=== PATIENT | female | born 1970 | race Caucasian/White ===

== ENCOUNTER → 2020-01-16 12:01 | Outpatient (BNVA) | payer BC, SELFPAY | PROVIDERS: Family Provider Nurse Practitioner; PCP Nurse Practitioner; Visit Provider Family Medicine | DX: L98.9 Disorder of the skin and subcutaneous tissue, unspecified (principal) | CPT/HCPCS: 88305 ==

== ENCOUNTER → 2020-02-10 17:10 | Outpatient (BNVA) | payer BC, SELFPAY | PROVIDERS: Family Provider Nurse Practitioner; PCP Nurse Practitioner; Visit Provider Nurse Practitioner Women's Health | DX: L91.8 Other hypertrophic disorders of the skin (principal) | CPT/HCPCS: 88304; 88305 ==

== ENCOUNTER → 2020-02-13 10:22 | Outpatient (BNVA) | payer BC, SELFPAY | PROVIDERS: Family Provider Nurse Practitioner; PCP Nurse Practitioner; Visit Provider Nurse Practitioner Women's Health | DX: R10.2 Pelvic and perineal pain (principal); N93.9 Abnormal uterine and vaginal bleeding, unspecified; E66.9 Obesity, unspecified | CPT/HCPCS: 76830 ==

== ENCOUNTER → 2020-02-21 11:52 | Outpatient (BNVA) | payer BC, SELFPAY | PROVIDERS: Family Provider Nurse Practitioner; PCP Nurse Practitioner; Visit Provider Nurse Practitioner Family | DX: M10.9 Gout, unspecified (principal); M25.572 Pain in left ankle and joints of left foot; M79.672 Pain in left foot; R73.09 Other abnormal glucose; M25.472 Effusion, left ankle | CPT/HCPCS: 73610; 73630 ==

== ENCOUNTER → 2020-03-19 14:31 | Outpatient (BNVA) | payer BC, SELFPAY | PROVIDERS: Family Provider Nurse Practitioner; PCP Nurse Practitioner; Visit Provider Obstetrics & Gynecology | DX: N91.1 Secondary amenorrhea (principal); G62.9 Polyneuropathy, unspecified | CPT/HCPCS: 83001; 84146; 84443; 84702 ==

== ENCOUNTER → 2020-04-06 13:02 | Outpatient (BNVA) | payer BC, SELFPAY | PROVIDERS: Family Provider Nurse Practitioner; PCP Nurse Practitioner; Referring Provider Obstetrics & Gynecology; Visit Provider Internal Medicine | DX: E11.42 Type 2 diabetes mellitus with diabetic polyneuropathy (principal); E55.9 Vitamin D deficiency, unspecified; E66.01 Morbid (severe) obesity due to excess calories; Z68.44 Body mass index [BMI] 60.0-69.9, adult; I10 Essential (primary) hypertension; R53.83 Other fatigue; R94.6 Abnormal results of thyroid function studies; Z87.39 Personal history of other diseases of the musculoskeletal system and connective tissue | CPT/HCPCS: 99204 ==

== ENCOUNTER 2020-04-12 13:09 | Outpatient (CLI) | payer BC, SELFPAY ==
--- NOTE | 2020-04-12 13:30 | MM_ITS ---
WS: [id number] BILATERAL DIGITAL DIAGNOSTIC MAMMOGRAM MAMMOGRAPHY WITH CAD CLINICAL INFORMATION: Right Axillary Breast Lump COMPARISON: March 03, 2017 TECHNIQUE: Bilateral CC, MLO, and ML views. FINDINGS: Scattered fibroglandular densities bilaterally. Palpable marker upper outer right breast. No underlyi ng mammographic abnormalities. Ultrasound is pending. Left breast is unremarkable and unchanged since 2017. ULTRASOUND BREAST LEFT TECHNIQUE: Ultrasound left breast focused area of concern. CLINICAL INFORMATION: Right Axillary Breast Lump COMPARISON: None. FINDINGS: Ultrasound right breast at the 2:00 position 10 cm from the nipple. In the area of palpable concern i s echogenic well-circumscribed lesion most consistent with lipoma or fibroadenolipoma. This has a chelsey ign appearance. This measures 2.8 x 1.5 x 1.8 cm. No other suspicious abnormalities. MM/[place] [id number] IMPRESSION: BI-RADS: 2-Benign FOLLOW UP: 1 Year Follow-up Recommend return to annual screening mammography. .
--- NOTE | 2020-04-12 14:15 | US_ITS ---
WS: [id number] BILATERAL DIGITAL DIAGNOSTIC MAMMOGRAM MAMMOGRAPHY WITH CAD CLINICAL INFORMATION: Right Axillary Breast Lump COMPARISON: March 03, 2017 TECHNIQUE: Bilateral CC, MLO, and ML views. FINDINGS: Scattered fibroglandular densities bilaterally. Palpable marker upper outer right breast. No underlyi ng mammographic abnormalities. Ultrasound is pending. Left breast is unremarkable and unchanged since 2017. ULTRASOUND BREAST LEFT TECHNIQUE: Ultrasound left breast focused area of concern. CLINICAL INFORMATION: Right Axillary Breast Lump COMPARISON: None. FINDINGS: Ultrasound right breast at the 2:00 position 10 cm from the nipple. In the area of palpable concern i s echogenic well-circumscribed lesion most consistent with lipoma or fibroadenolipoma. This has a chelsey ign appearance. This measures 2.8 x 1.5 x 1.8 cm. No other suspicious abnormalities. US/US breast RT limited* [id number] IMPRESSION: BI-RADS: 2-Benign FOLLOW UP: 1 Year Follow-up Recommend return to annual screening mammography. .
== END 2020-04-12 13:10 | disposition home or self-care (01) ==
LOC: RADSHAW 13:14
PROVIDERS: PCP Family Medicine; Visit Provider Obstetrics & Gynecology
DX: N63.31 Unspecified lump in axillary tail of the right breast (principal)
CPT/HCPCS: 76642; 77066

== ENCOUNTER → 2020-04-26 11:31 | Outpatient (BNVA) | payer BC, SELFPAY | PROVIDERS: PCP Family Medicine; Visit Provider Obstetrics & Gynecology | DX: Z20.828 Contact with and (suspected) exposure to other viral communicable diseases (principal); G89.29 Other chronic pain | CPT/HCPCS: 87635 ==

== ENCOUNTER → 2020-05-16 11:49 | Outpatient (BNVA) | payer BC, SELFPAY | PROVIDERS: PCP Family Medicine; Visit Provider Obstetrics & Gynecology | DX: Z11.59 Encounter for screening for other viral diseases (principal) | CPT/HCPCS: 87635 ==

== ENCOUNTER 2020-05-17 15:56 | Outpatient (CLI) | payer BC, SELFPAY | END 2020-05-17 15:57 | disposition home or self-care (01) | LOC: SPT 15:58 | PROVIDERS: PCP Family Medicine; Visit Provider Podiatrist Foot & Ankle Surgery | DX: Z47.89 Encounter for other orthopedic aftercare (principal); M72.2 Plantar fascial fibromatosis | CPT/HCPCS: 97760; L4397 ==

== ENCOUNTER 2020-05-23 10:40 | Observation (INO) | payer BC, SELFPAY ==
[2020-05-21 09:26] VITALS: BMI 53.4
--- NOTE | 2020-05-21 09:41 | P.ANESASSM_ITS ---
Pre-Anesthetic Assessment Pre-Anesthetic Assessment: Height/Weight: Height 1.65 m Weight 145.603 kg Preop Diagnosis: abdominal pain Proposed Procedure: Operation Date: 05/23/20 07:55 Proposed Procedures p Laparoscopy Diagnostic 47207 R10.2(Not Applicable) - Toy Thornton MD Familial anesthetic complications: None Social: Social History: No alcohol and No tobacco Exam: Pre-Anes Outpt Exam: alert, oriented x 3, clear to auscultation bilaterally and regular rate & rhythm Airway: Cervical ROM: WNL MP: 3 Dentition: Chipped and Full Pulmonary: Pulmonary: Sleep apnea (cpap) CV/HEM: CV/HEM: HTN GI: GI: GERD Metabolic: Metabolic: DM and Morbid obesity Anesthetic Plan: ASA status: 2 Anesthesia: General Risk of > 500 ml blood loss (7ml/kg in children): No PFSH Anesthesia PFSH: Medical History Benign mole Bone spur of left ankle Chronic pelvic pain in female Hypothyroidism OAB (overactive bladder) Type 2 diabetes mellitus Surgical History H/O umbilical hernia repair (~1998) performed at same time of gastric sleeve S/P section (~2011) Performed at [facility] in [place], [place] S/P gastric bypass (~1998) Gastric sleeve--- performed in [place] S/P tonsillectomy Family History Mother Hypertension Diabetes CAD (coronary artery disease) Hyperlipidemia Grandfather Diabetes Stroke MATERNAL Grandmother Diabetes Family/Other Diabetes Denies family history of Colon cancer Ovarian cancer Breast cancer Uterine cancer Social History Smoking and tobacco status: never smoked Alcohol intake: former Former alcohol use details: as a teenager Female Reproductive History: Date of last menstrual period: 04/02/20 Data Anesthesia Cardiac Studies: Holter Monitor 01/10/20
[2020-05-23] VITALS (19 sets, daily range): BP systolic 108–162; BP diastolic 60–72; PULSE 47–95; RESP 14–21; TEMP 36.2–36.8; O2SAT 92–100
[2020-05-23 06:15] LABS: OR HCG Qualitative Urine Negative (Negative)
[2020-05-23 06:16] LABS: Glucose Point of Care 109 mg/dL (70-110)
[2020-05-23] MEDS: sodium chloride 0.9% 500 ML IV (06:21)
[2020-05-23] MEDS: scopolamine 1.5 Patch 1 PATCH TRANSDERMA (06:23)
--- NOTE | 2020-05-23 06:43 | P.ANESUD_ITS ---
Pre-Anesthetic Update Pre-Anesthetic Assessment: Date of Surgery/Procedure: 05/23/20 Preop Radha gnosis: Chronic pelvic pain Proposed Procedure: Operation Date: 05/23/20 07:00 Proposed Procedures p Laparoscopy Diagnostic 12894 R10.2(Not Applicable) - Toy Thornton MD Any changes to Pre-Anesthetic Assessment?: No Last Intake: Intake Last Liquid Date 05/22/20 Last Liquid Time 21:30 Last Solid Date 05/22/20 Last Solid Time 19:00 Labs Last 48hrs: Laboratory Results - last 48 hr 05/23/20 05/23/20 05:55 06:13 POC Glucose 109 Urine HCG, Qual Negative Vitals: Oxygen Delivery Me thod 05/23/20 06:09 Exam: Pre-Anes Outpt Exam: alert, oriented x 3, clear to auscultation bilater ally and regular rate & rhythm Other Pertinent Information: Other Pertinent Information: R eye is red and irritated since thursday- states its getting better Cardiac Studies: Holter Monitor 01/10/20
--- NOTE | 2020-05-23 07:08 | W.PM.OPSUD ---
Surgery/Procedure H&P Update DATE OF PROCEDURE: May 23, 2020 DATE H&P PERFORMED: 04/24/20 H&P UPDATE INFORMATION: I have reviewed H&P completed within last 30 days, I have examined patient prior to procedure and No changes to prior documentation PREOP DIAGNOSIS: Chronic pelvic pain PLANNED PROCEDURE: Operation Date: 05/23/20 07:00 Proposed Procedures p Laparoscopy Diagnostic 01212 R10.2(Not Applicable) - Toy Thornton MD
[2020-05-23] MEDS: sodium chloride 0.9% 1,000 ML 30 ML IV (07:16)
[2020-05-23 08:23] LABS: Basophils # 0.1 10^3/uL (0.0-0.1); Basophils % 0.6 %; Eosinophils # 0.1 10^3/uL (0.0-0.8); Eosinophils % 1.5 %; Hematocrit 42.6 % (37.0-47.0); Lymphocytes # 3.3 10^3/uL (0.8-4.8); Lymphocytes % 34.7 %; Mean Corpuscular HGB Conc 30.5 g/dL (30.0-36.0); Mean Corpuscular Hemoglobin 28.1 pg (28.0-34.0); Mean Platelet Volume 11.2 fL (7.4-10.4); Monocytes # 0.6 10^3/uL (0.2-0.9); Monocytes % 5.7 %; Neutrophils # 5.49 10^3/uL (1.8-7.7); Nucleated Red Blood Cells % 0 %; Platelet Count 219 10^3/cmm (130-400); Red Blood Count 4.63 10^6/uL (4.1-5.3); Red Cell Distribution Width 14.3 % (12.1-15.1); White Blood Count 9.6 10^3/uL (4.0-10.0)
[2020-05-23 08:33] LABS: Alanine Aminotransferase 16 U/L (0-33); Albumin Level 4.1 g/dL (3.5-5.2); Alkaline Phosphatase 69 IU/L (35-105); Anion Gap 15.7 (5-19); Aspartate Amino Transferase 15 U/L (0-32); Blood Urea Nitrogen 14 mg/dL (6-20); Calcium 9.2 mg/dL (8.5-10.5); Carbon Dioxide 27 mmol/L (22-29); Chloride 101 mmol/L (98-107); Globulin 2.7 g/dL (1.3-4.6); Glomerular Filtration Rate 106.7 mL/min (90-130); Glucose 115 mg/dL (65-115); Osmolality Calculated 291 mOsm/kg (285-295); Potassium 3.7 mmol/L (3.5-5.1); Sodium 140 mmol/L (136-145); Total Bilirubin 0.3 mg/dL (0.15-1.2); Total Protein 6.8 g/dL (6.6-8.7)
--- NOTE | 2020-05-23 08:54 | P.OP_ITS ---
Operative Report Date of procedure: May 23, 2020 Pre-op Diagnosis: Chronic pelvic pain Post-op diagnosis: same Post-op Findings: dense adhesions in pelvis, and anterior abdominal wall Procedure Done: Diagnostic laparoscopy Pathology: none sent Surgeon: Toy Thornton MD Anesthesia: General Estimated blood loss (mL): 5 IV fluids (mL): 700 Urine output (mL): 50 Findings: Dense adhesions Condition: stable Disposition: PACU Procedure: DESCRIPTION OF PROCEDURE: After informed consent, the patient was taken to the operating room where general anesthesia was administered. The patient was examined under anesthesia and found to have a normal uterus with normal adnexa. She was placed in the dorsal lithotomy position and prepped and draped in sterile fashion. Pre- Procedure Time-Out verifying the correct patient identity, correct procedure verified with consent, correct site and side, correct patient position, availability of correct implants and any special equipment or requirements was performed and acknowledge by the OR team. A weighted speculum was placed in the vagina, and the anterior lip of cervix was grasped with the single toothed tenaculum. A uterine manipulator was advanced into the endocervical. Tenaculum was removed after uterine manipulator was secured. The speculum was removed from the vagina. An intraumbilical incision was made with a scalpel. While tenting up on the abdomen, a Verres needle with sleeve was admitted into the intra-abdominal cav ity. A saline drop test was performed and noted to be within normal limits. Pneumoperitoneum was attained with 4 liters of carbon dioxide. The Verres needle was removed. A 5 mm trocar and sleeve were admitted into the abdomen and laparoscopic confirmation of location was achieved, A second incision was made 3 cm above the symphysis pubis, and a 5 mm trocar and sleeve were admitted into the abdomen under direct, laparoscopic visualization without complication. A survey revealed the abdominal anatomy distorted due to multiple omental adhesions and pelvic survey shows the uterus with dense adhesions to the anterior abdominal wall. The left and right adnexa difficult to assess due to adhesions. A 5 mm blunt probe was advanced through the second trocar sleeve, and light manipulation of ovaries and uterus to assess the posterior aspects was performed. Carbon dioxide was allowed to escape from the abdomen. The instruments were removed, and skin cover with a bandage. The instruments were removed from the vagina, and excellent hemostasis was noted. The patient tolerated the procedure well, and sponge, lap and needle count were correct times two. The patient taken to the recovery room in good condition.
[2020-05-23] MEDS: ondansetron 2 mg/ML SDV 2 mL 4 MG IVP (09:02)
[2020-05-23 10:27] LABS: Add Urine Microscopic? NO; Bilirubin Urine Neg (Negative); Blood Urine Neg (Negative); Glucose Urine UA Norm (Normal); Ketones Urine Negative (Negative); Leukocyte Esterase Urine Negative (Negative); Nitrate Urine Negative (Negative); Protein Urine Neg (Negative); Urine Appearance Clear (CLEAR); Urine Color Straw (Yellow); Urobilinogen Urine Norm (Negative)
--- NOTE | 2020-05-23 10:40 | PM.PACU ---
PACU note Post-Anesthesia Exam: awake and vital signs stable Disposition: admitted
[2020-05-23] MEDS: docusate sodium 100 mg Capsule PO (11:32)
[2020-05-23] MEDS: allopurinol 100 mg Tablet PO (11:32)
[2020-05-23] MEDS: gabapentin 300 mg Capsule PO ×2 (11:32→17:42)
[2020-05-23] MEDS: dextrose 5%-lactated ringers 1,000 ML 125 ML IV ×2 (11:32→21:19)
[2020-05-23] MEDS: cetirizine 10 mg Tablet PO (11:32)
[2020-05-23] MEDS: ketorolac 30 mg/mL INJ IVP ×3 (11:35→22:44)
[2020-05-23] MEDS: pantoprazole DR 40 mg Tablet PO (11:35)
[2020-05-23] MEDS: metformin XR 500 MG Tablet PO (13:58)
--- NOTE | 2020-05-23 16:02 | PC.NURSE ---
Patient requests to be given her FLU shot tomorrow before she is discharged.
--- NOTE | 2020-05-23 16:31 | PC.NURSE ---
Patient's arrived with patient's medications already sorted out in her pill box. Explained to patient that I needed roseann to bring in her pill bottles with the medications in them. Patient states, Why I know what I take and when Explained to the patient that we needed the bottles for the pharmacy to verify what the medication is so we can say that she received it. Patient states, I know what they are and I need my medications so I am going to take them like I take them at home. I am not confused or anything so I am going to take them. I don't need to be charged for medications when I have my own here. Patient took her Propranolol 60 mg, Linzess 145mg, and her Contrave 2 pills. Patient home medications were removed from bedside and placed in her room bin which gets locked. Explained to patient that she needs to get up to a chair for dinner and to walk around tonight before bed. Patient states, I wanted to go home. I didn't even want to be here so I will get to the chair and walk when I am ready. Patient at bedside during conversation.
[2020-05-23] MEDS: [UNRECOGNIZED DRUG - OTHER] 2 EACH PO (17:42)
[2020-05-24] VITALS: BP 106/63; PULSE 65; RESP 16; TEMP 36.6; O2SAT 96
[2020-05-24 04:00] VITALS: BP 110/67; PULSE 50; RESP 20; TEMP 36.3; O2SAT 96
[2020-05-24] MEDS: dextrose 5%-lactated ringers 1,000 ML 125 ML IV (04:19)
[2020-05-24] MEDS: ketorolac 30 mg/mL INJ IVP (04:44)
[2020-05-24 06:20] LABS: Hematocrit 35.7 % (37.0-47.0); Hemoglobin 10.9 g/dL (11.5-15.3); Mean Corpuscular HGB Conc 30.5 g/dL (30.0-36.0); Mean Corpuscular Hemoglobin 28.7 pg (28.0-34.0); Mean Corpuscular Volume 93.9 fL (81-99); Mean Platelet Volume 10.4 fL (7.4-10.4); Platelet Count 173 10^3/cmm (130-400); Red Cell Distribution Width 14.6 % (12.1-15.1); White Blood Count 8.5 10^3/uL (4.0-10.0)
[2020-05-24 07:30] VITALS: BP 105/69; PULSE 51; RESP 15; TEMP 36.4; O2SAT 95
[2020-05-24] MEDS: hydroCHLOROthiazide 25 mg Tablet PO (08:11)
[2020-05-24] MEDS: metformin XR 500 MG Tablet PO (08:11)
[2020-05-24] MEDS: pantoprazole DR 40 mg Tablet PO (08:12)
[2020-05-24] MEDS: docusate sodium 100 mg Capsule PO (08:12)
[2020-05-24] MEDS: allopurinol 100 mg Tablet PO (08:12)
[2020-05-24] MEDS: ibuprofen 800 mg tablet PO (08:12)
[2020-05-24] MEDS: gabapentin 300 mg Capsule PO (08:12)
[2020-05-24] MEDS: lisinopril 20 mg Tablet PO (08:13)
[2020-05-24] MEDS: cetirizine 10 mg Tablet PO (08:13)
[2020-05-24] MEDS: NON-FORMULARY MEDICATION (Linaclotide [Linzess] 145 MCG) 145 EACH PO (08:23)
[2020-05-24] MEDS: [UNRECOGNIZED DRUG - OTHER] 2 EACH PO (08:23)
--- NOTE | 2020-05-24 08:49 | PM.OBGYDC ---
Discharge Providers SPEECH AND LANGUAGE ASSISTANT Date of Admission: 05/23/20 10:40 Date of Discharge: 05/24/20 Attending Provider at Admission: Toy Thornton MD Attending Provider at Discharge: Toy Thornton MD Primary Care Provider: Asha Adair MD Reason for Visit Reason for Visit: chronic pelvic pain Hospital Course Hospital Course: 41-year-old female admitted for a diagnostic laparoscopy due to chronic pelvic pain. The procedure was performed without complications. Overnight observation was uneventful. She is tolerating diet well. Ambulating without difficulty. Pain well controlled. Physical Exam Narrative: EXAM NARRATIVE: GA: Alert and oriented ?3. HEENT: WNL. Heart: Regular rate and rhythm. Lungs: Clear to auscultation bilaterally. Abdomen: Bowel sounds present, nontender, minimal tenderness, incision clean and dry, no redness, pain or edema. STEWARD/STEWARDESS ROOM: No bleeding. Extremities: No edema, no cyanosis, no calves pain. Urinary Catheter Management^: Mark: Cath Placed During This Visit: yes, but has since been removed by the nurse Reason for Continuing Indwelling Catheter: Perioperative Use in Selected Surgeries Urinary Catheter Date of Insertion: 05/23/20 Urinary Catheter Time of Insertion: 07:48 Date Urinary Catheter Removed: 05/23/20 Time Urinary Catheter Discontinued: 21:00 Discharge Data Data Completed and Pending: Pending at discharge Category Date Time Status ES surgery / GI i mages Routine Exams 05/23/20 06:31 Taken Labs from last 24 hours 05/24/20 05/23/20 05/23/20 06:05 06:10 05:55 WBC 8.5 RBC 3.80 L Hgb 10.9 L Hct 35.7 L MCV 93.9 MCH 28.7 MCHC 30.5 RDW 14.6 Plt Count 173 MPV 10.4 Urine Color Straw Urine Appearance Clear Urine pH 5.0 Ur Specific Gravit y 1.020 Urine Protein Neg Urine Glucose (UA) Norm Urine Ketones Negative Urine Blood Neg Urine Nitrate Negative Urine Bilirubin Neg Urine Urobilinogen Norm Ur Leukocyte Francoise ase Negative Blood Type A Negative Rho(D) Type Negative Antibody Screen Negative Vitals: Last Vital Signs Temp 97.5 F L 05/24/20 07:30 Pulse 51 L 05/24/20 07:30 Resp 15 05/24/20 07:30 BP 105/69 05/24/20 07:30 Pulse Ox 95 05/24/20 07:30 Discharge Plan Discharge Patient Disposition: Home Condition: Stable Prescriptions: New ibuprofen 800 mg tablet 800 mg PO TID PRN (Reason: pain) Qty: 60 RF: 0 Continued cetirizine [Zyrtec] 10 mg tablet 10 mg PO QDAY RF: 0 gabapentin 300 mg capsule 300 mg PO BID RF: 0 (DME) Night splint See Rx Instructions .Route .MEDSUPPLY Qty: 1 RF: 0 allopurinol 100 mg tablet 100 mg PO DAILY Qty: 30 RF: 2 (DME) Diabetic Shoes See Rx Instructions .ROUTE .MEDSUPPLY Qty: 1 RF: 0 Linzess 145 mcg capsule 145 mcg PO DAILY Qty: 30 RF: 2 lisinopril-hydrochlorothiazide 20-25 mg tablet 1 tab PO QDAY 30 Days Qty: 30 RF: 5 metformin 500 mg tablet extended release 24 hr 500 mg PO DAILY 30 Days Qty: 30 RF: 2 Prilosec OTC 20 mg tablet,delayed release (DR/EC) 20 mg PO QDAY 30 Days Qty: 30 RF: 5 propranolol 60 mg capsule,extended release 24 hr 60 mg PO QDAY 30 Days Qty: 30 RF: 5 naltrexone-bupropion [Contrave] 8-90 mg tablet extended release See Rx Instructions .ROUTE .COMPLEX Qty: 120 RF: 0 Discharge Orders: Discharge Order (Routine); Ordered 05/24/20 Ordered By: Toy Thornton Referrals: Toy Thornton MD [Physician] - 2 weeks Discharge Diet: Regular Discharge Activity: Increase activity as tolerated Patient Instructions: Laparoscopy, Exploratory Laparoscopy (DC) Activity Restrictions/Additional Instructions: Pelvic rest for 6 weeks: No tampons, no vaginal douches, no sex. Return to the emergency room if any fever (>100.4), increased bleeding or pain Discharge Attestations SPEECH AND LANGUAGE ASSISTANT Time Spent in Discharge Care*: greater than 30 min Coding Level of Care Code Acute Die Attaching Machine Tender for Nisreen White
--- NOTE | 2020-05-24 10:06 | PC.CHAP ---
Pastoral Care Encounter/Spiritual Assessment Type of Contact [] Declined manufacturing automation engineer visit [] Patient/Family/Request visit [] Outpatient visit [] Follow-up visit [] Physician referral [] Code/Alert [x] Routine visit [] Staff referral [] Actively dying [] Patient sleeping [] Family support [] [] Out of room [] Palliative care [] [x] Receiving care in room [] Pre-surgical visit [] Trauma [] Long length of stay [] ICU visit [] Other: Relational/Emotional Strength [x] Patient feels connected with others/family/visitors/staff [] Distress [] Loneliness/isolation [] Abandonment Spirituality of Patient [x] Person of Sandra [] Attends Anglican of their Sandra [x] Believes in Prayer [] Reads Bible or Mandaeism materials [] There are Spiritual issues to be addressed Bird Cage Assembler Interventions [x] Prayer [x] Active listening [x] Non-anxious presence [x] Spiritual/emotional support [] Crisis/trauma care [x] Spiritual counseling [] Bereavement support [] Provided bereavement packet [] Provided Bible/devotional materials [] Provided toy/stuffed animal, coloring book to patient or family member [] Provided Communion [] Anointing/Chambers [] Salvation [x] Completed spiritual assessment [] Other: Impact on Illness or Injury [] Angry [] Fearful [] Anxious [] Often cries [] Exhaustion [] Unable to work [] Unable to attend anglican [] Unable to walk/stand [] Unable to read [] Unable to drive [] Unable to eat/drink [] Unable to sleep [] Unable to be with family [] Patient intubated [] Other: Summary Porceduer on pelvic will need some time for recovery and threopy going home has a very good attitude Time spent with patient 10 m ins
[2020-05-24 10:46] VITALS: BP 105/69; PULSE 51; RESP 15; TEMP 36.4; O2SAT 95
== END 2020-05-24 10:00 | disposition home or self-care (01) ==
LOC: MEDSURG 10:41
PROVIDERS: Admitting Provider Obstetrics & Gynecology; PCP Family Medicine; Visit Provider Obstetrics & Gynecology
PROC: (CPT 49320; principal; 2020-05-23 07:00)
DX: R10.2 Pelvic and perineal pain (principal); N73.6 Female pelvic peritoneal adhesions (postinfective); G47.30 Sleep apnea, unspecified; I10 Essential (primary) hypertension; K21.9 Gastro-esophageal reflux disease without esophagitis; E11.9 Type 2 diabetes mellitus without complications; E66.01 Morbid (severe) obesity due to excess calories; Z68.43 Body mass index [BMI] 50.0-59.9, adult; E03.9 Hypothyroidism, unspecified
CPT/HCPCS: 49320; 12345; 36415; 36416; 80053; 81003; 82962; 84703; 85025; 85027; 86850; 86900; 96360; 96361; 96365; 96375; G0378; J0330; J0690; J1885; J2405; J2704; J2710; J2765; J3490; J7030; J7040

== ENCOUNTER → 2020-08-01 14:00 | Outpatient (BNVA) | payer BC, SELFPAY | PROVIDERS: PCP Family Medicine; Visit Provider Internal Medicine | DX: E11.9 Type 2 diabetes mellitus without complications (principal); E55.9 Vitamin D deficiency, unspecified; E79.0 Hyperuricemia without signs of inflammatory arthritis and tophaceous disease; G62.9 Polyneuropathy, unspecified; I10 Essential (primary) hypertension; E66.01 Morbid (severe) obesity due to excess calories; Z68.44 Body mass index [BMI] 60.0-69.9, adult; R00.1 Bradycardia, unspecified; Z87.39 Personal history of other diseases of the musculoskeletal system and connective tissue; Z98.84 Bariatric surgery status | CPT/HCPCS: 99214 ==

== ENCOUNTER 2020-08-08 09:07 | Day surgery (SDC) | payer BC, SELFPAY ==
[2020-08-06 13:23] VITALS: BMI 52.2
[2020-08-08 09:39] LABS: OR HCG Qualitative Urine Negative (Negative)
[2020-08-08 09:45] VITALS: BP 139/76; PULSE 57; RESP 18; TEMP 36.5; O2SAT 98
--- NOTE | 2020-08-08 09:46 | W.PM.OPSUD ---
Surgery/Procedure H&P Update DATE OF PROCEDURE: August 08, 2020 DATE H&P PERFORMED: 07/19/21 H&P UPDATE INFORMATION: I have reviewed H&P completed within last 30 days, I have examined patient prior to procedure and No changes to prior documentation PREOP DIAGNOSIS: Bleeding per rectum PRIMARY INDICATION FOR PROCEDURE: The same PLANNED PROCEDURE: Operation Date: 08/08/20 10:15 Proposed Procedures p EGD/Colon 96406 K21.9(Not Applicable) - Jan Garcia MD s Colonoscopy 12880 K62.5(Not Applicable) - Jan Garcia MD
[2020-08-08] MEDS: sodium chloride 0.9% 1,000 ML 30 ML IV (10:00)
[2020-08-08 10:04] LABS: Glucose Point of Care 112 mg/dL (70-110)
--- NOTE | 2020-08-08 10:25 | ANES.PREANE2 ---
Pre-Anesthetic Assessment Pre-Anesthetic Assessment: Height/Weight: Height 1.65 m Weight 142.428 kg Temp Pulse Resp BP Pulse Ox 97.7 F 57 L 18 139/76 98 08/08/20 09:45 08/08/20 09:45 08/08/20 09:45 08/08/20 09:45 08/08/20 09:45 Preop Diagnosis: Bleeding per rectum Proposed Procedure: Operation Date: 08/08/20 10:15 Proposed Procedures p EGD/Colon 55505 K21.9(Not Applicable) - Jan Garcia MD s Colonoscopy 53402 K62.5(Not Applicable) - Jan Garcia MD Familial anesthetic complications: None Was Beta Lorena taken within 24 hours: Yes Last intake: Intake Last Liquid Date 08/07/20 Last Liquid Time 23:00 Last Solid Date 08/06/20 Last Solid Time 23:00 Social: Social History: No alcohol and No tobacco Exam: Pre-Anes Outpt Exam: alert, oriented x 3, clear to auscultation bilaterally and regular rate & rhythm Airway: Cervical ROM: WNL MP: 4 Dentition: Chipped Additional comments: Large neck circumference and tongue, small mouth openining, recessed chin Pulmonary: Pulmonary: Sleep apnea (BiPAP) CV/HEM: CV/HEM: HTN Metabolic: Metabolic: DM, Morbid obesity (super morbid obestiy) and Thyroid Comments: s/p gastric sleeve bypass in 1998 Anesthetic Plan: ASA status: 3 Anesthesia: MAC Risk of > 500 ml blood loss (7ml/kg in children): No Meds/Allergies Current Medications: Current Medications Generic Name Dose Route Start Last Admin Trade Name Freq PRN Reason Stop Dose Admin Sodium Chloride 1,000 mls @ 30 ml s/hr 08/08/20 09:30 08/08/20 10:00 Sodium Chloride 0.9% IV 08/09/20 09:29 30 mls/hr .Q24H ERIS Administration PFSH Anesthesia PFSH: Medical History Benign mole Bone spur of left ankle Chronic pelvic pain in female Hypothyroidism OAB (overactive bladder) Type 2 diabetes mellitus Surgical History H/O umbilical hernia repair (~1998) performed at same time of gastric sleeve S/P section (~2011) Performed at [facility] in [place], [place] S/P gastric bypass (~1998) Gastric sleeve--- performed in [place] S/P tonsillectomy Family History Mother Hypertension Diabetes CAD (coronary artery disease) Hyperlipidemia Grandfather Diabetes Stroke MATERNAL Grandmother Diabetes Family/Other Diabetes Denies family history of Colon cancer Ovarian cancer Breast cancer Uterine cancer Social History Smoking and tobacco status: never smoked Alcohol intake: former Former alcohol use details: as a teenager Female Reproductive History: Date of last menstrual period: 07/12/20 Data Anesthesia Other Labs: Laboratory Results - last 48 hr 08/08/20 08/08/20 09:38 09:56 POC Glucose 112 H Urine HCG, Qual Negative Cardiac Studies: Holter Monitor 01/10/20
[2020-08-08 11:33] VITALS: BP 85/57; PULSE 51; RESP 18; TEMP 36.1; O2SAT 97
--- NOTE | 2020-08-08 11:37 | ANE.PACU2 ---
Inpatient post-anesthesia follow up: Airway intact: Yes Vital signs: Temperature 97.7 F Pulse Rate 57 Respiratory Rate 18 Blood Pressure 139/76 Pulse Oximetry 98 Oxygen Delivery Me thod Room Air Oxygen Flow Rate Fraction of Inspir ed Oxygen Hydration adequate: Yes Nausea and vomiting: No Pain level: 1 Mental status: Baseline
[2020-08-08 11:56] VITALS: BP 95/63; PULSE 51; RESP 18; O2SAT 95
== END 2020-08-08 12:05 | disposition home or self-care (01) ==
PROVIDERS: Anesthesiology; PCP Family Medicine; Visit Provider Surgery
PROC: 0DJ08ZZ Inspection of Upper Intestinal Tract, Via Natural or Artificial Opening Endoscopic (ICD-10-PCS; CPT 43235; principal; 2020-08-08 10:15)
PROC: 0DJD8ZZ Inspection of Lower Intestinal Tract, Via Natural or Artificial Opening Endoscopic (ICD-10-PCS; CPT 45378; 2020-08-08 10:15)
DX: K62.5 Hemorrhage of anus and rectum (principal); K21.9 Gastro-esophageal reflux disease without esophagitis; D12.8 Benign neoplasm of rectum; Z98.84 Bariatric surgery status; G47.30 Sleep apnea, unspecified; I10 Essential (primary) hypertension; E11.9 Type 2 diabetes mellitus without complications; E66.01 Morbid (severe) obesity due to excess calories; Z68.43 Body mass index [BMI] 50.0-59.9, adult; E03.9 Hypothyroidism, unspecified; Z79.84 Long term (current) use of oral hypoglycemic drugs
CPT/HCPCS: 12345; 36416; 43235; 45385; 81025; 82962; 84703; 88305; J2704; J7030

== ENCOUNTER 2020-08-22 13:02 | Inpatient (IN) | payer BC, SELFPAY ==
[2020-08-20 13:53] VITALS: BMI 52.2
[2020-08-20 14:31] LABS: OR HCG Qualitative Urine Negative (Negative)
--- NOTE | 2020-08-20 14:35 | P.ANESASSM_ITS ---
Pre-Anesthetic Assessment Pre-Anesthetic Assessment: Height/Weight: Height 1.65 m Weight 142.428 kg Preop Diagnosis: Chronic pelvic pain and pelvic abdominal adhesions Proposed Procedure: Operation Date: 08/22/20 07:00 Proposed Procedures p Laparoscopic Assist Vaginal Hystectomy 59761 r10.2(Not Applicable) - Toy Thornton MD Familial anesthetic complications: None Social: Social History: No alcohol and No tobacco Exam: Pre-Anes Outpt Exam: alert, oriented x 3, clear to auscultation bilaterally and regular rate & rhythm Airway: Cervical ROM: WNL MP: 4 Dentition: Other (missing teeth) Pulmonary: Pulmonary: Sleep apnea (cpap) CV/HEM: CV/HEM: HTN GI: GI: GERD Comments: s/p gastric bypass (no OG/NG) Metabolic: Metabolic: DM and Morbid obesity Anesthetic Plan: ASA status: 3 Anesthesia: General Risk of > 500 ml blood loss (7ml/kg in children): No PFSH Anesthesia PFSH: Medical History Benign mole Bone spur of left ankle Chronic pelvic pain in female Hypothyroidism OAB (overactive bladder) Type 2 diabetes mellitus Surgical History H/O umbilical hernia repair (~1998) performed at same time of gastric sleeve S/P section (~2011) Performed at [facility] in [place], [place] S/P gastric bypass (~1998) Gastric sleeve--- performed in [place] S/P tonsillectomy Family History Mother Hypertension Diabetes CAD (coronary artery disease) Hyperlipidemia Grandfather Diabetes Stroke MATERNAL Grandmother Diabetes Family/Other Diabetes Denies family history of Colon cancer Ovarian cancer Breast cancer Uterine cancer Social History (Updated 08/20/20 @ 10:14 by Tiffany Olvera RN) Smoking and tobacco status: never smoked Alcohol intake: former Former alcohol use details: as a teenager Substance/Drug Use: never Current gender identity: Female Female Reproductive History: Date of last menstrual period: 07/12/20 Data Anesthesia CBC & Chem 7: 08/20/20 14:00 08/20/20 14:00 Other Labs: Laboratory Results - last 48 hr 08/20/20 13:45 Urine HCG, Qual Negative Cardiac Studies: Holter Monitor 01/10/20
[2020-08-20 14:41] LABS: Basophils # 0.1 10^3/uL (0.0-0.1); Basophils % 0.6 %; Eosinophils # 0.1 10^3/uL (0.0-0.8); Eosinophils % 1.2 %; Hematocrit 41.4 % (37.0-47.0); Hemoglobin 12.8 g/dL (11.5-15.3); Lymphocytes # 3.2 10^3/uL (0.8-4.8); Lymphocytes % 31.2 %; Mean Corpuscular HGB Conc 30.9 g/dL (30.0-36.0); Mean Corpuscular Hemoglobin 27.9 pg (28.0-34.0); Mean Corpuscular Volume 90.4 fL (81-99); Monocytes # 0.6 10^3/uL (0.2-0.9); Monocytes % 5.5 %; Neutrophils # 6.37 10^3/uL (1.8-7.7); Neutrophils % 61.1 %; Nucleated Red Blood Cells % 0 %; Platelet Count 233 10^3/cmm (130-400); Red Blood Count 4.58 10^6/uL (4.1-5.3); Red Cell Distribution Width 14.4 % (12.1-15.1); White Blood Count 10.4 10^3/uL (4.0-10.0)
[2020-08-20 14:56] LABS: Add Urine Microscopic? YES; Bilirubin Urine Neg (Negative); Blood Urine Neg (Negative); Glucose Urine UA Norm (Normal); Ketones Urine Negative (Negative); Leukocyte Esterase Urine Negative (Negative); Nitrate Urine Negative (Negative); Protein Urine Neg (Negative); Urine Appearance SL Hazy (CLEAR); Urine Color Straw (Yellow); Urobilinogen Urine Norm (Negative); WBC Urine 0-4 /hpf (0-5); pH Urine 5 (5-7)
[2020-08-20 14:57] LABS: Add Urine Culture? No; Bacteria Urine 2+ /hpf; Squamous Epithelial Cell Urine 0-4 /hpf (0-5)
[2020-08-20 15:30] LABS: Alanine Aminotransferase 20 U/L (0-33); Albumin Level 3.6 g/dL (3.5-5.2); Alkaline Phosphatase 73 IU/L (35-105); Blood Urea Nitrogen 16 mg/dL (6-20); Carbon Dioxide 29 mmol/L (22-29); Chloride 101 mmol/L (98-107); Globulin 2.9 g/dL (1.3-4.6); Glomerular Filtration Rate 106.7 mL/min (90-130); Glucose 154 mg/dL (65-115); Osmolality Calculated 292 mOsm/kg (285-295); Sodium 139 mmol/L (136-145); Total Bilirubin 0.3 mg/dL (0.15-1.2); Total Protein 6.5 g/dL (6.6-8.7)
[2020-08-20 15:39] LABS: Aspartate Amino Transferase 20 U/L (0-32)
[2020-08-22] VITALS (15 sets, daily range): BP systolic 79–155; BP diastolic 47–114; PULSE 52–67; RESP 14–24; TEMP 36.4–37.1; O2SAT 93–99; BMI 52.2
[2020-08-22 07:28] LABS: OR HCG Qualitative Urine Negative (Negative)
[2020-08-22 07:48] LABS: Glucose Point of Care 113 mg/dL (70-110)
[2020-08-22] MEDS: sodium chloride 0.9% 500 ML IV (07:55)
[2020-08-22] MEDS: scopolamine 1.5 Patch 1 PATCH TRANSDERMA (07:56)
--- NOTE | 2020-08-22 08:00 | P.ANESUD_ITS ---
Pre-Anesthetic Update Pre-Anesthetic Assessment: Date of Surgery/Procedure: 08/22/20 Preop Radha gnosis: Chronic pelvic pain and pelvic abdominal adhesions Proposed Procedure: Operation Date: 08/22/20 08:15 Proposed Procedures p Laparoscopic Assist Vaginal Hystectomy 08166 r10.2(Not Applicable) - Toy Thornton MD Any changes to Pre-Anesthetic Assessment?: No Last Intake: Intake Last Liquid Date 08/22/20 Last Liquid Time 06:00 Last Solid Date 08/21/20 Last Solid Time 20:30 Labs Last 48hrs: Laboratory Results - last 48 hr 08/20/20 08/20/20 08/20/20 13:45 14:00 14:00 WBC 10.4 H RBC 4.58 Hgb 12.8 Hct 41.4 MCV 90.4 MCH 27.9 L MCHC 30.9 RDW 14.4 Plt Count 233 MPV 11.0 H Neut % (Auto) 61.1 Lymph % (Auto) 31.2 [place] % (Auto) 5.5 Eos % (Auto) 1.2 Baso % (Auto) 0.6 Neut # (Auto) 6.37 Lymph # (Auto) 3.2 [place] # (Auto) 0.6 Eos # (Auto) 0.1 Baso # (Auto) 0.1 Nucleated RBC % (a uto) 0 Nucleated RBCs # 0.0 Sodium 139 Potassium 4.0 Chloride 101 Carbon Dioxide 29 Anion Gap 13.0 BUN 16 Creatinine 0.6 GFR Calculation 106.7 Glucose 154 H POC Glucose Calculated Osmolal ity 292 Calcium 9.0 Total Bilirubin 0.3 AST 20 ALT 20 Alkaline Phosphata se 73 Total Protein 6.5 L Albumin 3.6 Globulin 2.9 Urine Color Urine Appearance Urine pH Ur Specific Gravit y Urine Protein Urine Glucose (UA) Urine Ketones Urine Blood Urine Nitrate Urine Bilirubin Urine Urobilinogen Ur Leukocyte Francoise ase Urine RBC Urine WBC Ur Squamous Epith Cells Amorphous Sediment Urine Bacteria Urine HCG, Qual Negative Blood Type Rho(D) Type Antibody Screen 08/20/20 08/20/20 08/22/20 14:00 14:15 07:27 WBC RBC Hgb Hct MCV MCH MCHC RDW Plt Count MPV Neut % (Auto) Lymph % (Auto) [place] % (Auto) Eos % (Auto) Baso % (Auto) Neut # (Auto) Lymph # (Auto) [place] # (Auto) Eos # (Auto) Baso # (Auto) Nucleated RBC % (a uto) Nucleated RBCs # Sodium Potassium Chloride Carbon Dioxide Anion Gap BUN Creatinine GFR Calculation Glucose POC Glucose Calculated Osmolal ity Calcium Total Bilirubin AST ALT Alkaline Phosphata se Total Protein Albumin Globulin Urine Color Straw Urine Appearance Sl hazy Urine pH 5 Ur Specific Gravit y 1.020 Urine Protein Neg Urine Glucose (UA) Norm Urine Ketones Negative Urine Blood Neg Urine Nitrate Negative Urine Bilirubin Neg Urine Urobilinogen Norm Ur Leukocyte Francoise ase Negative Urine RBC None Urine WBC 0-4 H Ur Squamous Epith Cells 0-4 H Amorphous Sediment Not Reportable Urine Bacteria 2+ H Urine HCG, Qual Negative Blood Type A Negative Rho(D) Type Negative Antibody Screen Negative 08/22/20 07:45 WBC RBC Hgb Hct MCV MCH MCHC RDW Plt Count MPV Neut % (Auto) Lymph % (Auto) [place] % (Auto) Eos % (Auto) Baso % (Auto) Neut # (Auto) Lymph # (Auto) [place] # (Auto) Eos # (Auto) Baso # (Auto) Nucleated RBC % (a uto) Nucleated RBCs # Sodium Potassium Chloride Carbon Dioxide Anion Gap BUN Creatinine GFR Calculation Glucose POC Glucose 113 H Calculated Osmolal ity Calcium Total Bilirubin AST ALT Alkaline Phosphata se Total Protein Albumin Globulin Urine Color Urine Appearance Urine pH Ur Specific Gravit y Urine Protein Urine Glucose (UA) Urine Ketones Urine Blood Urine Nitrate Urine Bilirubin Urine Urobilinogen Ur Leukocyte Francoise ase Urine RBC Urine WBC Ur Squamous Epith Cells Amorphous Sediment Urine Bacteria Urine HCG, Qual Blood Type Rho(D) Type Antibody Screen Vitals: Temperature 97.5 F L 08/22/20 07:23 Pulse Rate 67 08/22/20 07:23 Respiratory Rate 16 08/22/20 07:23 Blood Pressure 155/114 08/22/20 07:23 Blood Pressure Ariana n 127 08/22/20 07:23 Pulse Oximetry 99 08/22/20 07:23 Oxygen Delivery Me thod 08/22/20 07:23 Exam: Pre-Anes Outpt Exam: alert, oriented x 3, clear to auscultation bilate rally and regular rate & rhythm Cardiac Studies: Holter Monitor 01/10/20
--- NOTE | 2020-08-22 08:00 | W.PM.OPSUD ---
Surgery/Procedure H&P Update DATE OF PROCEDURE: August 22, 2020 DATE H&P PERFORMED: 08/19/20 H&P UPDATE INFORMATION: I have reviewed H&P completed within last 30 days, I have examined patient prior to procedure and No changes to prior documentation PREOP DIAGNOSIS: Chronic pelvic pain and pelvic abdominal adhesions PLANNED PROCEDURE: Operation Date: 08/22/20 08:15 Proposed Procedures p Laparoscopic Assist Vaginal Hystectomy 27045 r10.2(Not Applicable) - Toy Thornton MD
[2020-08-22] MEDS: ceFOXitin 2,000 MG in sodium chloride 0.9% (plus) 50 ML 100 MG IV (08:40)
[2020-08-22] MEDS: sodium chloride 0.9% 1,000 ML 30 ML IV (08:40)
--- NOTE | 2020-08-22 11:51 | P.OP_ITS ---
Operative Report Date of procedure: August 22, 2020 Pre-op Diagnosis: Chronic pelvic pain and pelvic abdominal adhesions Post-op diagnosis: same Post-op Findings: Omental adhesions Procedure Done: Total abdominal hysterectomy with bilateral salpingo- oophorectomy Surgeon: Toy Thornton MD Anesthesia: General Estimated blood loss (mL): 300 IV fluids (mL): 1,700 Urine output (mL): 400 Complications: None Condition: stable Disposition: PACU Procedure: The patient was taken to the operating room, and after adequate level of general anesthesia was achieved, the patient was placed in the Trendelenburg position, prepped and draped in the usual sterile fashion. Subsequently, a Pfannenstiel incision was made and the incision was taken down to the fascia. The fascia was opened up sharply. The fascia was extended to the length of the incision using the Marie scissors. At this time, the rectus muscles were dissected from the fascia superiorly and inferiorly to the symphysis pubis. The midline rectus muscles were opened sharply and extended superiorly and inferiorly. The peritoneum was visualized, grasped, opened sharply, and extended superiorly and inferiorly towards the bladder. The abdominal contents were packed superiorly away from the operative site using the lap packs. At this time, the pelvic organs were noted. The Yovanny self-retaining retractor was placed. Bowel was packed away from the operative site. The fundus of the uterus was then grasped with a triple-tooth tenaculum and retracted out of the pelvic cavity into the abdominal site. At this point, Michelle clamps were placed in both right and left adnexal regions. Subsequently, using the Enseal tissue sealing device, the round ligaments were grasped, cauterized, and dissected. The bladder flap was then formed and the bladder flap was pushed away down anteriorly over the lower uterine segment, pushed away from the operative site on both the right and left sides. Subsequently, the posterior leaf of the broad ligament was opened sharply and the Enseal tissue sealing device was then placed below the level of the ovary in both the right and left side, care being taken not to damage bowel or uterus and the infundibulopelvic ligament was then grasped, cauterized, and again dissected. Further dissection of the broad ligament was carried down posteriorly towards the uterine vessels. The bladder was pushed inferiorly down towards the vagina. Subsequently, the uterine vessels were then grasped again with the tissue sealing device, cauterized, and dissected. The cardinal ligaments were further grasped, dissected, and suture ligated, again with the Enseal tissue sealing device. At that point, the Enseal tissue sealing device was stopped and straight Zeppelin clamps were used on the cardinal ligaments down towards the uterosacral ligaments. The cardinal ligaments were grasped, dissected with a scalpel and then ligated with transfixion sutures with #1 Vicryl suture down to the uterosacral ligaments. The uterosacral ligaments were grasped, dissected, and suture ligated again with #1 Vicryl suture and transfixion sutures. At that time, the bladder had been pushed over the vagina and at this time right-angle Zeppelin clamps were placed on the vagina at the level of the cervix, and using the Sonia scissors, the cervix was dissected away from the vagina. At this time, the vaginal cuff was then closed using interrupted sutures of #1 Vicryl suture from the midline to each lateral corner. After the good hemostasis had been achieved in the vaginal cuff, both the right and left adnexa was visualized and no more bleeding was noted. The cuff was intact with no bleeding noted. The bladder was visualized and no bleeding was noted. Seprafilm was then placed over the vaginal cuff. The Yovanny self- retaining retractor was removed as well as the anterior and inferior blades. The lap packs were removed, and at this time, general closure of the abdomen was carried out. The peritoneum was closed with a 2-0 Vicryl suture and continuous running suture. The fascia was closed using a #1 Vicryl suture from each corner to the midline. The patient was given indigo carmine IV. The subcutaneous tissue was cauterized. No bleeding was noted. The subcutaneous tissue was then reapproximated using plain sutures and interrupted sutures, and the skin was closed using the Insorbs subcuticular absorbable chico. The incision was infiltrated for Exparel for pain management. The patient was repositioned in dorsal lithotomy position draped and prepped for cystoscopy. Then the Mark catheter was removed and cystoscope was inserted. The bladder was filled with sterile water. Complete evaluation of the bladder mucosa was performed noting no lacerations, dimpling, tears, bleeding of the mucosa or muscular layers. Both ureteral orifices were identified. Prompt excretion of blue urine from both ureteral orifices was noted and the cystoscope was withdrawn. The Mark catheter was replaced. The patient tolerated the procedure well and was transferred to the recovery room in excellent condition. The patient returned to the floor for recovery.
[2020-08-22] MEDS: ondansetron 2 mg/ML SDV 2 mL 4 MG IVP (12:06)
[2020-08-22] MEDS: dextrose 5%-lactated ringers 1,000 ML 125 ML IV (13:18)
[2020-08-22] MEDS: ketorolac 30 mg/mL INJ IVP (13:30)
--- NOTE | 2020-08-22 15:07 | PC.NURSE ---
RECEIVED PATIENT FROM OR AROUND 1215. PT GOT OFF [facility] AND AMBULATED TO BATHROOM, FELT LIKE HER BOWELS NEEDED TO MOVE. PT SAT THERE FOR ROUGHLY 30 MINUTES WITHOUT RESULTS PT THEN BACK TO BED AND WAS BACK UP AT 1300. STILL UNABLE TO HAVE A BOWEL MOVEMENT, PATIENT THAT SHE PASSED A LITTLE AIR BUT NOTHING ELSE.
[2020-08-22] MEDS: allopurinol 100 mg Tablet PO (16:03)
[2020-08-22] MEDS: gabapentin 300 mg Capsule PO ×2 (18:09→18:23)
[2020-08-22] MEDS: docusate sodium 100 mg Capsule PO (18:09)
--- NOTE | 2020-08-22 18:33 | ANE.PACU2 ---
Inpatient post-anesthesia follow up: Airway intact: Yes Vital signs: Temperature 98.2 F Pulse Rate 64 Respiratory Rate 18 Blood Pressure 107/67 Pulse Oximetry 93 Oxygen Delivery Me thod Room Air Oxygen Flow Rate 2 Fraction of Inspir ed Oxygen Hydration adequate: Yes Nausea and vomiting: No Pain level: 2 Mental status: Baseline
[2020-08-22] MEDS: ibuprofen 800 mg tablet PO (20:08)
[2020-08-23 04:40] VITALS: BP 97/58; PULSE 61; RESP 17; TEMP 36.8; O2SAT 96
[2020-08-23 05:12] LABS: Hematocrit 33.6 % (37.0-47.0); Hemoglobin 10.3 g/dL (11.5-15.3); Mean Corpuscular HGB Conc 30.7 g/dL (30.0-36.0); Mean Corpuscular Hemoglobin 28.1 pg (28.0-34.0); Mean Corpuscular Volume 91.8 fL (81-99); Mean Platelet Volume 10.1 fL (7.4-10.4); Platelet Count 191 10^3/cmm (130-400); Red Blood Count 3.66 10^6/uL (4.1-5.3); Red Cell Distribution Width 15.1 % (12.1-15.1); White Blood Count 11.3 10^3/uL (4.0-10.0)
[2020-08-23] MEDS: ibuprofen 800 mg tablet PO ×2 (07:18→19:15)
--- NOTE | 2020-08-23 08:25 | P.PN_ITS ---
Subjective Subjective: Interval history: Feeling well, hardly had any pain last night only took Motrin for discomfort after ambulating the floor Vitals/I&O/Wt Last Vital Signs Temp 98.2 F 08/23/20 04:40 Pulse 61 08/23/20 04:40 Resp 17 08/23/20 04:40 BP 97/58 08/23/20 04:40 Pulse Ox 96 08/23/20 04:40 08/22/20 08/23/20 08/23/20 22:59 06:59 14:59 Intake Total 500 / 1550 Output Total 600 / 1700 60 / 1760 100 / 100 Balance -100 / -150 -60 / -210 -100 / -100 Weight last 48 hrs Weight 142.42 kg Physical Exam Narrative: EXAM NARRATIVE: GA: Alert and oriented ?3. HEENT: WNL. Heart: Regular rate and rhythm. Lungs: Clear to auscultation bilaterally. Abdomen: Bowel sounds present, nontender, minimal tenderness, incision clean and dry, no redness, pain or edema. ROBOTIC TOY INVENTOR: No bleeding. Extremities: No edema, no cyanosis, no calves pain. Urinary Catheter Management^: Latex Free: Cath Placed During This Visit: yes Urinary Catheter Date of Insertion: 08/22/20 Urinary Catheter Time of Insertion: 09:15 Data : 08/23/20 05:00 08/20/20 14:00 A&P Assessment and plan (1) Status post total abdominal hysterectomy and bilateral salpingo-oophorectomy (SALVATORE-BSO): Patient is status post total abdominal hysterectomy with bilateral salpingo-oophorectomy day 1. She is afebrile and hemodynamically stable. Tolerated liquid diet well. Will advance diet. Ambulating without difficulty. Patient refers pain is well under control looking forward to go home. Status: Acute (2) Abnormal perimenopausal bleeding: Resolve from hysterectomy Status: Acute (3) Pelvic pain: Status: Acute Attestations Medical Necessity Statement*: In my professional opinion per admitting diagnosis Coding Level of Care Code Acute Offset Press Operator Apprentice for Nisreen White Diagnoses Status post total abdominal hysterectomy and bilateral salpingo-oophorectomy (SALVATORE-BSO) Z90.710; Z90.722; Z90.79 Abnormal perimenopausal bleeding N92.4 Pelvic pain R10.2
[2020-08-23] MEDS: pantoprazole DR 40 mg Tablet PO (09:24)
[2020-08-23] MEDS: metformin XR 500 MG Tablet PO (09:24)
[2020-08-23] MEDS: allopurinol 100 mg Tablet PO (09:24)
[2020-08-23] MEDS: gabapentin 300 mg Capsule PO ×2 (09:26→18:50)
[2020-08-23] MEDS: lisinopril 20 mg Tablet 40 MG PO (09:26)
[2020-08-23] MEDS: docusate sodium 100 mg Capsule PO ×2 (09:27→18:51)
[2020-08-23 10:00] VITALS: BP 99/62; PULSE 62; RESP 16; TEMP 36.6; O2SAT 96
[2020-08-23 16:00] VITALS: BP 100/68; PULSE 64; RESP 18; TEMP 36.7; O2SAT 94
[2020-08-23] MEDS: simethicone 80 mg Chew PO (20:41)
[2020-08-23 21:40] VITALS: BP 108/57; PULSE 79; RESP 18; TEMP 37.7; O2SAT 96
[2020-08-23 22:40] VITALS: BP 97/59; PULSE 80; RESP 18; TEMP 38.2; O2SAT 96
[2020-08-23] MEDS: acetaminophen 325 mg Tablet 650 MG PO (23:21)
[2020-08-23 23:47] VITALS: BP 97/63; PULSE 77; RESP 18; TEMP 37.7; O2SAT 95
[2020-08-24] MEDS: ibuprofen 800 mg tablet PO ×2 (03:47→19:52)
[2020-08-24 03:50] VITALS: BP 103/61; PULSE 69; RESP 16; TEMP 36.6; O2SAT 96
[2020-08-24] MEDS: docusate sodium 100 mg Capsule PO (10:11)
[2020-08-24] MEDS: pantoprazole DR 40 mg Tablet PO (10:11)
[2020-08-24] MEDS: lisinopril 20 mg Tablet 40 MG PO (10:14)
[2020-08-24] MEDS: gabapentin 300 mg Capsule PO ×2 (10:14→20:33)
[2020-08-24] MEDS: allopurinol 100 mg Tablet PO (10:14)
[2020-08-24] MEDS: metformin XR 500 MG Tablet PO (10:15)
[2020-08-24 11:48] VITALS: BP 102/65; PULSE 59; TEMP 36.6; O2SAT 97
[2020-08-24] MEDS: acetaminophen 325 mg Tablet 650 MG PO ×2 (14:56→21:21)
--- NOTE | 2020-08-24 16:47 | PM.PN ---
Subjective Subjective: Interval history: Fever last night. Pain under control. Eating well Vitals/I&O/Wt Last Vital Signs Temp 97.9 F 08/24/20 11:48 Pulse 59 L 08/24/20 11:48 Resp 16 08/24/20 03:50 BP 102/65 08/24/20 11:48 Pulse Ox 97 08/24/20 11:48 08/24/20 08/24/20 08/24/20 06:59 14:59 22:59 Output Total 400 / 1500 1100 / 1100 Balance -400 / -1500 -1100 / -1100 Physical Exam Narrative: EXAM NARRATIVE: GA: Alert and oriented ?3. HEENT: WNL. Heart: Regular rate and rhythm. Lungs: Clear to auscultation bilaterally. Abdomen: Bowel sounds present, nontender, minimal tenderness, incision clean and dry, no redness, pain or edema. PATIENT INTAKE COORDINATOR: No bleeding. Extremities: No edema, no cyanosis, no calves pain. Urinary Catheter Management^: Latex Free: Cath Placed During This Visit: yes Urinary Catheter Date of Insertion: 08/22/20 Urinary Catheter Time of Insertion: 09:15 Data : 08/23/20 05:00 08/20/20 14:00 A&P Assessment and plan (1) Status post total abdominal hysterectomy and bilateral salpingo-oophorectomy (SALVATORE-BSO): Patient is status post total abdominal hysterectomy with bilateral salpingo-oophorectomy postoperative day 2. She is hemodynamically stable and currently afebrile. However she spiked a fever of 100.8 last night. Will continue observation. Suspect he might be a vasomotor reaction to surgical menopause. Urine output is adequate. She is tolerating diet well. Ambulating without difficulty. Instructed patient to continue use and spirometer and to use the SCDs while in bed Status: Acute Attestations Medical Necessity Statement*: In my professional opinion per admitting diagnosis Coding Level of Care Code Acute Corrections Nurse for Nisreen White Diagnoses Status post total abdominal hysterectomy and bilateral salpingo-oophorectomy (SALVATORE-BSO) Z90.710; Z90.722; Z90.79
[2020-08-24 17:00] VITALS: BP 116/88; PULSE 62; RESP 17; TEMP 36.8; O2SAT 98
[2020-08-24 22:44] VITALS: BP 97/57; PULSE 78; RESP 19; TEMP 37; O2SAT 97
--- NOTE | 2020-08-24 22:55 | P.DS_ITS ---
Discharge Providers LAMP INSPECTOR Date of Admission: 08/22/20 13:02 Date of Discharge: 08/24/20 Attending Provider at Admission: Toy Thornton MD Attending Provider at Discharge: Toy Thornton MD Primary Care Provider: Asha Adair MD Diagnoses at Discharge Discharge Diagnosis (1) Status post total abdominal hysterectomy and bilateral salpingo-oophorectomy (SALVATORE-BSO): Status: Acute Reason for Visit Reason for Visit: Laparoscopic Assist Vaginal Hystectomy Hospital Course Hospital Course 49-year-old female G1, P1 with a history of chronic pelvic pain and abnormal uterine bleeding. Admitted to the hospital for a total abdominal hysterectomy with bilateral salpingo-oophorectomy. Surgery was performed without complications. Afebrile and hemodinamically stable Ambulating without difficulty. Pain under control. Tolerating diet well. Had bowel movement. Physical Exam Narrative: EXAM NARRATIVE: EXAM NARRATIVE: GA: Alert and oriented ?3. HEENT: WNL. Heart: Regular rate and rhythm. Lungs: Clear to auscultation bilaterally. Abdomen: Bowel sounds present, nontender, minimal tenderness, incision clean and dry, no redness, pain or edema. PATTERN WORKER: No bleeding. Extremities: No edema, no cyanosis, no calves pain. Urinary Catheter Management^: Latex Free: Cath Placed During This Visit: yes Urinary Catheter Date of Insertion: 08/22/20 Urinary Catheter Time of Insertion: 09:15 Discharge Data Data Completed and Pending: Completed Studies During Hospitalization Category Date Time Status Pathology: Surgic al [PTH] Routine Pth 08/22/20 12:01 Completed Vitals: Last Vital Signs Temp 98.6 F 08/24/20 22:44 Pulse 78 08/24/20 22:44 Resp 19 H 08/24/20 22:44 BP 97/57 08/24/20 22:44 Pulse Ox 97 08/24/20 22:44 Discharge Plan Discharge Patient Disposition: Home Condition: Stable Prescriptions: New acetaminophen 325 mg capsule 325 mg PO Q4H PRN (Reason: fever or pain) Qty: 60 RF: 0 docusate sodium [Colace] 100 mg capsule 100 mg PO BID Qty: 60 RF: 0 ferrous sulfate 325 mg (65 mg iron) tablet 325 mg PO BID Qty: 60 RF: 0 ibuprofen 800 mg tablet 800 mg PO TID PRN (Reason: pain) Qty: 60 RF: 0 Continued (DME) Night splint See Rx Instructions .Route .MEDSUPPLY Qty: 1 RF: 0 (DME) Diabetic Shoes See Rx Instructions .ROUTE .MEDSUPPLY Qty: 1 RF: 0 lisinopril 40 mg tablet 40 mg PO DAILY Qty: 90 RF: 3 metformin 500 mg tablet extended release 24 hr 500 mg PO DAILY 30 Days Qty: 30 RF: 2 Linzess 145 mcg capsule 145 mcg PO DAILY Qty: 30 RF: 2 gabapentin 300 mg capsule 300 mg PO BID Qty: 60 RF: 3 Prilosec OTC 20 mg tablet,delayed release (DR/EC) 20 mg PO QDAY 30 Days Qty: 30 RF: 5 propranolol 60 mg capsule,extended release 24 hr 60 mg PO QDAY 30 Days Qty: 30 RF: 5 Contrave 8-90 mg tablet extended release See Rx Instructions .ROUTE .COMPLEX RF: 0 allopurinol 100 mg tablet See Rx Instructions .ROUTE .COMPLEX Qty: 30 RF: 0 Discharge Orders: Discharge Order (Routine); Ordered 08/24/20 Ordered By: Toy Thornton Referrals: Toy Thornton MD [Physician] - 09/04/20 4:00 pm (Your 2 week post op appointment has been scheduled for 09/04/2020 at 4:[address] Thornton. Your 6 week post op appointment has been scheduled for 10/02/2020 at 3:[address] Thornton.) Discharge Diet: Regular Discharge Activity: Increase activity as tolerated Patient Instructions: Abdominal Hysterectomy (DC), General Anesthesia (GEN), Open Salpingo-oophorectomy (DC), OB Discharge Report, OB Food/Drug Interaction Guide, Post Anesthesia Care Activity Restrictions/Additional Instructions: Pelvic rest: No tampons, douches, or sex. Returne to ER if fever, bleeding or pain. Discharge Attestations LAMP INSPECTOR Time Spent in Discharge Care*: greater than 30 min Coding Level of Care Code Acute Environmental Sustainability Manager for Nisreen Fwd Diagnoses Status post total abdominal hysterectomy and bilateral salpingo-oophorectomy (SALVATORE-BSO) Z90.710; Z90.722; Z90.79
[2020-08-24 23:10] VITALS: BP 97/57; PULSE 78; RESP 19; TEMP 37; O2SAT 97
== END 2020-08-24 23:30 | disposition home or self-care (01) | DRG 982 ==
LOC: OBGYN 13:04
PROVIDERS: Anesthesiology; Admitting Provider Obstetrics & Gynecology; PCP Family Medicine; Visit Provider Obstetrics & Gynecology
PROC: 0UT90ZZ Resection of Uterus, Open Approach (ICD-10-PCS; CPT 58150; 2020-08-22 08:15)
PROC: 0TJB8ZZ Inspection of Bladder, Via Natural or Artificial Opening Endoscopic (ICD-10-PCS; CPT 52000; 2020-08-22 08:15)
DX: R10.2 Pelvic and perineal pain (principal); Z68.43 Body mass index [BMI] 50.0-59.9, adult; G89.29 Other chronic pain; E03.9 Hypothyroidism, unspecified; N32.81 Overactive bladder; E11.9 Type 2 diabetes mellitus without complications; Z98.84 Bariatric surgery status; E66.9 Obesity, unspecified; Z79.84 Long term (current) use of oral hypoglycemic drugs
CPT/HCPCS: 12345; 36415; 36416; 80053; 81001; 81025; 82962; 84703; 85025; 85027; 86850; 86900; 88307; 96365; C9290; J0131; J0330; J0694; J1100; J1885; J1940; J2405; J2704; J3010; J3490; J7030; J7040

== ENCOUNTER → 2020-09-24 14:42 | Outpatient (BNVA) | payer BC, SELFPAY | PROVIDERS: PCP Family Medicine; Visit Provider Family Medicine | DX: E66.9 Obesity, unspecified (principal); G62.9 Polyneuropathy, unspecified; E61.2 Magnesium deficiency; E11.9 Type 2 diabetes mellitus without complications; R60.9 Edema, unspecified; E55.9 Vitamin D deficiency, unspecified; R53.83 Other fatigue; E79.0 Hyperuricemia without signs of inflammatory arthritis and tophaceous disease; Z98.84 Bariatric surgery status; R94.6 Abnormal results of thyroid function studies; Z68.43 Body mass index [BMI] 50.0-59.9, adult | CPT/HCPCS: 80048; 82306; 82607; 83036; 83540; 83735; 83880; 84439; 84550 ==

== ENCOUNTER → 2020-10-03 14:21 | Outpatient (BNVA) | payer BC, SELFPAY | PROVIDERS: PCP Family Medicine; Visit Provider Psychiatry & Neurology Psychiatry | DX: F33.1 Major depressive disorder, recurrent, moderate (principal); F41.1 Generalized anxiety disorder | CPT/HCPCS: 99204 ==

== ENCOUNTER → 2020-10-29 09:21 | Outpatient (BNVA) | payer BC, SELFPAY | PROVIDERS: PCP Family Medicine; Visit Provider Psychiatry & Neurology Psychiatry | DX: F41.1 Generalized anxiety disorder (principal); F33.1 Major depressive disorder, recurrent, moderate | CPT/HCPCS: 99213 ==

== ENCOUNTER 2020-12-19 08:46 | Outpatient (CLI) | payer BC, SELFPAY ==
--- NOTE | 2020-12-19 08:45 | USCV_ITS ---
Suyapa Yang Age: 50 Gender: F : 1970 Exam Date: 12/19/2020 09:18 Ordering Phys: Ana Herndon MD ([email or web address]) Technologist: Exam Location: [facility] [place] Indication: TYPE II DIABETES BP: 140 / 84 HR: 57 Rhythm: Sinus Technical Quality: Technically difficult study MEASUREMENTS (Male / Female) Normal Values 2D ECHO LV Diastolic Diameter PLAX 5.5 cm 4.2 - 5.9 / 3.9 - 5.3 cm LV Systolic Diameter PLAX 4.2 cm IVS Diastolic Thickness 1.0 cm 0.6 - 1.0 / 0.6 - 0.9 cm IVS Systolic Thickness 1.5 cm LVPW Diastolic Thickness 1.3 cm 0.6 - 1.0 / 0.6 - 0.9 cm LVPW Systolic Thickness 1.4 cm LVOT Diameter 2.0 cm LV Ejection Fraction 2D Teich 46.9 % LV Ejection Fraction MOD 2C 58.5 % LV Ejection Fraction 2C AL 57.9 % LA Diameter 3.2 cm DOPPLER AV Peak Velocity 174.0 cm/s LVOT Peak Velocity 127.0 cm/s AV Area Cont Eq vti 2.1 cm squared AV Area Cont Eq pk 2.3 cm squared MV Area PHT 5.0 cm squared Mitral E to A Ratio 1.5 MV E' Velocity 116.0 cm/s TR Peak Velocity 147.8 cm/s TR Peak Gradient 8.7 mmHg TV Peak E Velocity 120.0 cm/s Right Atrial Pressure 3.0 mmHg Pulmonary Artery Systolic Pressu 11.7 mmHg PV Peak Velocity 110.0 cm/s FINDINGS Left Ventricle Normal left ventricular cavity size. Normal left ventricular systolic function. Left ventricular ejection fraction is estimated at 60 %. No regional wall motion abnormalities. Diastolic function was not assessed. Right Ventricle Normal right ventricular size and systolic function, RVSP 11.7 mmHg. Right Atrium Normal right atrial size. Left Atrium Left atrium not well visualized. Probably normal left atrial size. Mitral Valve Mitral valve not well visualized. No mitral valve stenosis. Mild mitral valve regurgitation. Aortic Valve Aortic valve not well visualized. No aortic valve stenosis. Tricuspid Valve Tricuspid valve not well visualized. Pulmonic Valve Pulmonic valve not well visualized. No pulmonary valve stenosis. Pericardium No pericardial effusion. Aorta Normal-sized aortic root and ascending aorta. CONCLUSIONS 1. This is a technically difficult study. Ultrasound enhancing agent Optison was used. 2. Normal left ventricular cavity size. Normal left ventricular systolic function. Left ventricular ejection fraction is estimated at 60 %. No regional wall motion abnormalities. Diastolic function was not assessed. 3. Normal right ventricle size and systolic function. 4. Mild mitral valve regurgitation. 5. Normal pulmonary artery pressure. 6. No prior similar studies to compare. Ana Herndon MD (Electronically Signed) Final Date: 24 Dec 2020 18:26 S
[2020-12-19] MEDS: perflutren protein-a microsphr 0.22 mg/mL SDV 3 mL IV (09:25)
== END 2020-12-19 08:47 | disposition home or self-care (01) ==
LOC: RAD 08:51
PROVIDERS: PCP Family Medicine; Visit Provider Internal Medicine Cardiovascular Disease
DX: I34.0 Nonrheumatic mitral (valve) insufficiency (principal); Z01.818 Encounter for other preprocedural examination; E11.9 Type 2 diabetes mellitus without complications; I10 Essential (primary) hypertension; Z79.899 Other long term (current) drug therapy
CPT/HCPCS: 80053; 80061; 83036; 84443; 85025; C8929; Q9956

== ENCOUNTER → 2021-04-24 11:18 | Outpatient (BNVA) | payer BC, SELFPAY | PROVIDERS: PCP Family Medicine; Visit Provider Family Medicine | DX: Z98.84 Bariatric surgery status (principal); G47.33 Obstructive sleep apnea (adult) (pediatric); E55.9 Vitamin D deficiency, unspecified; K21.9 Gastro-esophageal reflux disease without esophagitis; E11.9 Type 2 diabetes mellitus without complications; I10 Essential (primary) hypertension; Z68.42 Body mass index [BMI] 45.0-49.9, adult | CPT/HCPCS: 80053; 80061; 82306; 82607; 83036; 84443; 85025 ==

== ENCOUNTER 2021-05-23 09:20 | Outpatient (CLI) | payer BC, SELFPAY ==
--- NOTE | 2021-05-23 15:00 | MM_ITS ---
WS: [id number] BILATERAL SCREENING DIGITAL MAMMOGRAM WITH CAD HISTORY: Z12.31 - Encounter for screening mammogram for malignant COMPARISON: 04/12/2020, 1 Bilateral CC and MLO views submitted. Computer aided detection analyzed. Breast composition: There are scattered areas of fibroglandular density. No suspicious masses, microc alcifications or architectural distortion. Benign scattered calcifications in each breast. MM/[place] [id number] IMPRESSION: BI-RADS: 2-Benign FOLLOW UP: 1 Year Follow-up
== END 2021-05-23 09:21 | disposition home or self-care (01) ==
PROVIDERS: PCP Family Medicine; Visit Provider Family Medicine
DX: Z12.31 Encounter for screening mammogram for malignant neoplasm of breast (principal)
CPT/HCPCS: 77067

== ENCOUNTER → 2021-06-18 10:55 | Outpatient (BNVA) | payer BC, SELFPAY | PROVIDERS: PCP Family Medicine; Visit Provider Internal Medicine | DX: E11.9 Type 2 diabetes mellitus without complications (principal); G62.9 Polyneuropathy, unspecified; Z98.84 Bariatric surgery status | CPT/HCPCS: 99214 ==

== ENCOUNTER → 2022-02-12 10:19 | Outpatient (BNVA) | payer BC, SELFPAY | PROVIDERS: PCP Family Medicine; Visit Provider Nurse Practitioner Family | DX: M25.511 Pain in right shoulder (principal); V89.2XXA Person injured in unspecified motor-vehicle accident, traffic, initial encounter; M25.611 Stiffness of right shoulder, not elsewhere classified; S46.811A Strain of other muscles, fascia and tendons at shoulder and upper arm level, right arm, initial encounter; K21.9 Gastro-esophageal reflux disease without esophagitis; I10 Essential (primary) hypertension | CPT/HCPCS: 73030; 80053; 80061; 84443; 85025 ==

== ENCOUNTER 2022-04-03 09:17 | Outpatient (CLI) | payer BC, SELFPAY ==
--- NOTE | 2022-04-03 09:30 | MR_ITS ---
WS: [id number] MRI RIGHT SHOULDER NONCONTRAST TECHNIQUE: Sagittal T2, coronal T1, T2 and proton density imaging. Axial gradient PDE imaging. CLINICAL INFORMATION: M25.511 - Pain in right shoulder COMPARISON: None. FINDINGS: Moderate degenerative arthritis AC joint with synovial thickening and fluid. Edema at the AC joint wi th subchondral cystic change. Associated synovial cyst measuring 7 mm. Narrowing of the subacromial s pace. Subacromial spurring. Chronic thinning of the distal supraspinatus with a small intrasubstance tear. Infraspinatus is normal. Normal teres minor. Normal subscapularis. Normal biceps tendon in the bicipi milad groove. Degenerative fraying of the glenoid labrum. Normal bone marrow signal in the humerus and glenoid. Cystic degenerative changes involving the greater tuberosity with a tiny supraspinatus inser tional tear. Tendinopathy intra-articular biceps tendon. MR/MR shoulder RT wo con* [id number] IMPRESSION: 1. Advanced degenerative arthritis AC joint with edema and subchondral cystic change. Associated AC joint synovial cyst measuring 7 mm. Narrowing of the suba cromial space. 2. Small intrasubstance tear involving the distal supraspinatus with tendinopa thy. No tendon retraction. Additional tiny supraspinatus insertional tear. 3. Rotator cuff is otherwise normal. 4. Normal biceps tendon in the bicipital groove. 5. Tendinopathy intra-articular biceps tendon.
== END 2022-04-03 09:18 | disposition home or self-care (01) ==
PROVIDERS: PCP Family Medicine; Visit Provider Nurse Practitioner Family
DX: M25.511 Pain in right shoulder (principal); M25.611 Stiffness of right shoulder, not elsewhere classified; M19.011 Primary osteoarthritis, right shoulder; M25.811 Other specified joint disorders, right shoulder; M75.101 Unspecified rotator cuff tear or rupture of right shoulder, not specified as traumatic; M75.21 Bicipital tendinitis, right shoulder; V89.2XXA Person injured in unspecified motor-vehicle accident, traffic, initial encounter
CPT/HCPCS: 73221

== ENCOUNTER → 2022-04-21 10:35 | Outpatient (BNVA) | payer BC, SELFPAY | PROVIDERS: PCP Family Medicine; Referring Provider Nurse Practitioner Family; Visit Provider Student in an Organized Health Care Education/Training Program | DX: M67.921 Unspecified disorder of synovium and tendon, right upper arm (principal) | CPT/HCPCS: 73030 ==

== ENCOUNTER → 2022-07-03 11:54 | Outpatient (BNVA) | payer BC, SELFPAY | PROVIDERS: PCP Family Medicine; Referring Provider Student in an Organized Health Care Education/Training Program; Visit Provider Anesthesiology Pain Medicine | DX: M54.12 Radiculopathy, cervical region (principal); M25.552 Pain in left hip; M16.12 Unilateral primary osteoarthritis, left hip; M47.892 Other spondylosis, cervical region | CPT/HCPCS: 72040; 73502 ==

== ENCOUNTER → 2022-08-06 15:01 | Outpatient (BNVA) | payer OTHER, SELFPAY | PROVIDERS: PCP Family Medicine; Visit Provider Nurse Practitioner Family | DX: M54.9 Dorsalgia, unspecified (principal); M54.50 Low back pain, unspecified; R39.15 Urgency of urination | CPT/HCPCS: 81000 ==

== ENCOUNTER → 2022-08-21 14:59 | Outpatient (BNVA) | payer OTHER, SELFPAY | PROVIDERS: PCP Family Medicine; Visit Provider Anesthesiology Pain Medicine | DX: E11.9 Type 2 diabetes mellitus without complications (principal) | CPT/HCPCS: 36416; 82962 ==

== ENCOUNTER → 2022-09-26 11:21 | Outpatient (BNVA) | payer OTHER, SELFPAY | PROVIDERS: PCP Family Medicine; Visit Provider Nurse Practitioner Family | DX: K21.9 Gastro-esophageal reflux disease without esophagitis (principal); M25.511 Pain in right shoulder; S46.811A Strain of other muscles, fascia and tendons at shoulder and upper arm level, right arm, initial encounter; I10 Essential (primary) hypertension; E11.9 Type 2 diabetes mellitus without complications; X58.XXXA Exposure to other specified factors, initial encounter; Z79.899 Other long term (current) drug therapy | CPT/HCPCS: 80053; 80061; 84443; 85025 ==

== ENCOUNTER → 2022-10-07 11:22 | Outpatient (BNVA) | payer OTHER, SELFPAY | PROVIDERS: PCP Nurse Practitioner Family; Visit Provider Nurse Practitioner Family | DX: R73.09 Other abnormal glucose (principal); E11.9 Type 2 diabetes mellitus without complications; G47.33 Obstructive sleep apnea (adult) (pediatric) | CPT/HCPCS: 83036 ==

== ENCOUNTER 2022-10-17 10:17 | Outpatient (CLI) | payer OTHER, SELFPAY ==
--- NOTE | 2022-10-17 10:29 | MM_ITS ---
WS: [id number] BILATERAL SCREENING DIGITAL TOMOSYNTHESIS MAMMOGRAM WITH CAD HISTORY: Screening. COMPARISON: 05/23/2021 and 04/12/2020 Bilateral CC and MLO views with tomosynthesis and synthetic mammography submitted. Computer aided det ection analyzed. Breast composition: There are scattered areas of fibroglandular density. No suspicious masses, microc alcifications or architectural distortion. MM/[place] [id number] IMPRESSION: BI-RADS: 1-Negative FOLLOW UP: 1 Year Follow-up
== END 2022-10-17 10:18 | disposition home or self-care (01) ==
LOC: RAD 10:20
PROVIDERS: PCP Nurse Practitioner Family; Visit Provider Obstetrics & Gynecology
DX: Z12.31 Encounter for screening mammogram for malignant neoplasm of breast (principal)
CPT/HCPCS: 77063; 77067

== ENCOUNTER → 2022-12-15 11:16 | Outpatient (BNVA) | payer OTHER, SELFPAY | PROVIDERS: PCP Nurse Practitioner Family; Visit Provider Nurse Practitioner Family | DX: E11.9 Type 2 diabetes mellitus without complications (principal); E55.9 Vitamin D deficiency, unspecified | CPT/HCPCS: 80053; 80061; 83036; 84443; 85025 ==

== ENCOUNTER → 2023-02-16 11:56 | Outpatient (BNVA) | payer OTHER, SELFPAY | PROVIDERS: PCP Nurse Practitioner Family; Visit Provider Internal Medicine Cardiovascular Disease | DX: R00.1 Bradycardia, unspecified (principal); I10 Essential (primary) hypertension; G47.33 Obstructive sleep apnea (adult) (pediatric); K21.9 Gastro-esophageal reflux disease without esophagitis; E66.01 Morbid (severe) obesity due to excess calories; Z68.42 Body mass index [BMI] 45.0-49.9, adult; R94.31 Abnormal electrocardiogram [ECG] [EKG] | CPT/HCPCS: 93005 ==

== ENCOUNTER → 2023-04-23 14:52 | Outpatient (BNVA) | payer OTHER, SELFPAY | PROVIDERS: PCP Nurse Practitioner Family; Visit Provider Nurse Practitioner Family | DX: K21.9 Gastro-esophageal reflux disease without esophagitis (principal); M25.511 Pain in right shoulder; I10 Essential (primary) hypertension; E11.9 Type 2 diabetes mellitus without complications; E66.01 Morbid (severe) obesity due to excess calories; Z68.42 Body mass index [BMI] 45.0-49.9, adult; G47.33 Obstructive sleep apnea (adult) (pediatric); F41.1 Generalized anxiety disorder; F33.1 Major depressive disorder, recurrent, moderate; M25.50 Pain in unspecified joint | CPT/HCPCS: 80053; 80061; 83036; 84443; 85025 ==

== ENCOUNTER 2023-05-13 20:00 | Outpatient (CLI) | payer OTHER, SELFPAY | END 2023-05-13 20:01 | disposition home or self-care (01) | LOC: SLEEP 05-14 04:42 | PROVIDERS: PCP Nurse Practitioner Family; Visit Provider Nurse Practitioner Family | DX: G47.33 Obstructive sleep apnea (adult) (pediatric) (principal) | CPT/HCPCS: 95811 ==

== ENCOUNTER → 2023-07-21 14:51 | Outpatient (BNVA) | payer OTHER, SELFPAY | PROVIDERS: PCP Nurse Practitioner Family; Visit Provider Student in an Organized Health Care Education/Training Program | DX: M70.62 Trochanteric bursitis, left hip | CPT/HCPCS: 73502 ==

== ENCOUNTER → 2023-10-02 09:09 | Outpatient (BNVA) | payer OTHER, SELFPAY | PROVIDERS: PCP Nurse Practitioner Family; Visit Provider Nurse Practitioner Family | DX: E11.9 Type 2 diabetes mellitus without complications; I10 Essential (primary) hypertension | CPT/HCPCS: 80053; 80061; 82306; 82607; 82746; 83036; 83540; 84443; 85025 ==

== ENCOUNTER → 2024-03-09 10:47 | Outpatient (BNVA) | payer OTHER, SELFPAY | PROVIDERS: PCP Nurse Practitioner Family; Visit Provider Nurse Practitioner Family | DX: D69.6 Thrombocytopenia, unspecified (principal) | CPT/HCPCS: 85025 ==

== ENCOUNTER 2024-03-28 10:46 | Outpatient (CLI) | payer OTHER, SELFPAY ==
--- NOTE | 2024-03-28 11:00 | MM_ITS ---
WS: [email or web address] VIEWS: MLO and CC views both breasts. 3D digital tomosynthesis is also included in this exam. Comparison made with prior exam of 03/03/2017, 04/12/2020, 05/23/2021, 10/17/2022,.. Findings: There was no sign of mass, architectural distortion or suspicious calcification in either breast. The breasts are almost entirely fatty MM/[place] [id number] Impression: BI-RADS: 1-Negative FOLLOW-UP: 1 Year Follow-up This mammogram was also analyzed by the Computer Aided Detection System R2 Imag e Foreign Banknote Teller Trader.
== END 2024-03-28 10:47 | disposition home or self-care (01) ==
LOC: RAD 10:46
PROVIDERS: PCP Nurse Practitioner Family; Visit Provider Nurse Practitioner Family
DX: Z12.31 Encounter for screening mammogram for malignant neoplasm of breast (principal); R92.313 Mammographic fatty tissue density, bilateral breasts
CPT/HCPCS: 77063; 77067

== ENCOUNTER → 2024-06-06 11:32 | Outpatient (BNVA) | payer OTHER, SELFPAY | PROVIDERS: PCP Nurse Practitioner Family; Visit Provider Internal Medicine Cardiovascular Disease | DX: R06.02 Shortness of breath (principal) | CPT/HCPCS: 36415; 80048; 83880 ==

== ENCOUNTER → 2024-06-08 14:22 | Outpatient (BNVA) | payer OTHER, SELFPAY | PROVIDERS: PCP Nurse Practitioner Family; Visit Provider Nurse Practitioner Family | DX: E11.9 Type 2 diabetes mellitus without complications (principal) | CPT/HCPCS: 80053; 80061; 83036; 84443; 85025 ==

== ENCOUNTER → 2024-06-21 10:26 | Outpatient (BNVA) | payer OTHER, SELFPAY | PROVIDERS: PCP Nurse Practitioner Family; Visit Provider Nurse Practitioner Family | DX: E11.9 Type 2 diabetes mellitus without complications (principal) | CPT/HCPCS: 80053; 85025 ==

== ENCOUNTER → 2024-09-08 15:11 | Outpatient (BNVA) | payer OTHER, SELFPAY | PROVIDERS: PCP Nurse Practitioner Family; Visit Provider Nurse Practitioner Family | DX: E11.9 Type 2 diabetes mellitus without complications (principal); D69.6 Thrombocytopenia, unspecified | CPT/HCPCS: 80053; 80061; 82306; 82607; 83036; 83540; 84443; 85025 ==

== ENCOUNTER → 2024-12-14 11:49 | Outpatient (BNVA) | payer OTHER, SELFPAY | PROVIDERS: PCP Nurse Practitioner Family; Visit Provider Nurse Practitioner Family | DX: E11.9 Type 2 diabetes mellitus without complications (principal) | CPT/HCPCS: 80053; 80061; 83036; 84443; 85025 ==

== ENCOUNTER → 2025-03-21 11:56 | Outpatient (BNVA) | payer OTHER, SELFPAY | PROVIDERS: PCP Nurse Practitioner Family; Visit Provider Nurse Practitioner Family | DX: E11.9 Type 2 diabetes mellitus without complications (principal); I10 Essential (primary) hypertension | CPT/HCPCS: 80053; 80061; 82306; 82607; 83036; 84443; 85025 ==

== ENCOUNTER 2025-04-04 11:10 | Outpatient (CLI) | payer OTHER, SELFPAY ==
--- NOTE | 2025-04-04 11:20 | MM_ITS ---
WS: [id number] BILATERAL 3D TOMOSYNTHESIS DIGITAL SCREENING MAMMOGRAPHY WITH CAD CLINICAL INFORMATION: Z12.39 - Encounter for other screening for malignant neop... HISTORY: Screening mammogram. No current complaints. COMPARISON: 2023 TECHNIQUE: Bilateral CC and MLO views. FINDINGS: Scattered fibroglandular densities bilaterally. No suspicious focal mass, asymmetry, calcifications, or architectural distortion. No evidence of malignancy. A few incidental punctate calcifications. MM/MM [facility] tomosynthesis [id number] IMPRESSION: DENSITY: There are scattered areas of fibroglandular density. BI-RADS: 2 - Benign. FOLLOW UP: 1 Year Follow-up Recommend return to annual screening mammography.
== END 2025-04-04 11:11 | disposition home or self-care (01) ==
LOC: RAD 11:10
PROVIDERS: PCP Nurse Practitioner Family; Visit Provider Nurse Practitioner Family
DX: Z12.31 Encounter for screening mammogram for malignant neoplasm of breast (principal)
CPT/HCPCS: 77063; 77067

== ENCOUNTER 2025-05-09 15:23 | Outpatient (CLI) | payer OTHER, SELFPAY | END 2025-05-09 15:24 | disposition home or self-care (01) | LOC: SLEEP 15:24 | PROVIDERS: PCP Nurse Practitioner Family; Referring Provider Otolaryngology; Visit Provider Internal Medicine Pulmonary Disease | DX: G47.33 Obstructive sleep apnea (adult) (pediatric) (principal) | CPT/HCPCS: G0399 ==

== ENCOUNTER → 2025-06-13 09:54 | Outpatient (BNVA) | payer OTHER, SELFPAY | PROVIDERS: PCP Nurse Practitioner Family; Visit Provider Nurse Practitioner Women's Health | DX: R68.82 Decreased libido (principal); Z78.0 Asymptomatic menopausal state; R53.83 Other fatigue; R30.0 Dysuria | CPT/HCPCS: 81000; 82670; 84270; 84402; 84403; 87086 ==